=== PATIENT | female | born 1950 | race Caucasian/White ===

== ENCOUNTER 2022-10-11 21:12 | Emergency (ER) | payer SELFPAY ==
[~2022-10-11] VITALS: Ht 157.5 cm; Wt 63.0 kg
[2022-10-11 21:21] VITALS: BP 146/72; PULSE 84; RESP 16; TEMP 97.9; O2SAT 99
== END 2022-10-12 00:19 | disposition left against medical advice (07) ==
LOC: ER 21:12
DX: Z53.21 Procedure and treatment not carried out due to patient leaving prior to being seen by health care provider (principal)
CPT/HCPCS: 99281